=== PATIENT | female | born 1945 | race Caucasian/White ===

== ENCOUNTER 2021-01-03 13:48 | Emergency (ER) | payer MEDICARE ==
[~2021-01-03] VITALS: Ht 152.4 cm; Wt 108.9 kg
[2021-01-03 13:51] VITALS: BP 133/74
[2021-01-03] MEDS ORDERED: SODIUM CHLORIDE 0.9% 1,000 ML IV ONE (14:30)
[2021-01-03 14:43] LABS: Basophils # (auto) 0.1 10 ^3/uL (0-0.2); Basophils % (auto) 0.8 % (0.0-2.0); Eosinophils # (auto) 0.4 10 ^3/uL (0-0.8); Eosinophils % (auto) 5.7 % (0.0-7.0); Hematocrit 38.5 % (36.0-46.0); Hemoglobin 12.7 g/dL (12.2-16.2); Lymphocytes # (auto) 1.6 10 ^3/uL (0.4-5.4); Lymphocytes % (auto) 22.1 % (10.0-50.0); Mean Corpuscular Hemoglobin 29.6 pg (28.0-32.0); Mean Corpuscular Hgb Conc. 32.9 g/dL (32.0-36.0); Monocytes # (auto) 0.9 10 ^3/uL (0-1.3); Neutrophils # (auto) 4.4 10 ^3/uL (1.6-8.6); Neutrophils % (auto) 59.4 % (37.0-80.0); Red Blood Cells 4.28 10^6/uL (4.0-5.20); Red Cell Distribution Width 15.4 % (11.8-14.3); White Blood Cell 7.4 10^3/uL (4.4-10.8)
[2021-01-03 15:06] LABS: Albumin 2.9 g/dL (3.4-5.0); Anion Gap 0 (5-15); Blood Urea Nitrogen 30 mg/dL (7-18); Carbon Dioxide 36 mmol/L (21-32); Chloride 107 mmol/L (98-107); Glucose 102 mg/dL (74-106); Potassium 4.4 mmol/L (3.5-5.1); Sodium 143 mmol/L (136-145)
[2021-01-03 15:13] LABS: Alanine Aminotransferase 25 U/L (13-56); Alkaline Phosphatase 83 U/L (45-117); Aspartate Aminotransferase 20 U/L (15-37); BUN/Creatinine Ratio 17.2; Bilirubin, Total 0.3 mg/dL (0.2-1.0); GFR African American 37 mL/min; GFR Non-African American 30 mL/min; Total Protein 7.2 g/dL (6.4-8.2)
[2021-01-03] MEDS ORDERED: cefTRIAXone 1GM/50ML D5W 50 ML IV ONE (16:30)
== END 2021-01-03 18:00 | disposition left against medical advice (07) ==
LOC: ER 13:48
DX: N39.0 Urinary tract infection, site not specified (principal); N20.0 Calculus of kidney; I10 Essential (primary) hypertension; Z88.0 Allergy status to penicillin; Z88.2 Allergy status to sulfonamides
CPT/HCPCS: 36415; 71045; 74176; 80053; 84484; 85025